=== PATIENT | female | born 1950 | race African-American/Black ===

== ENCOUNTER 2017-11-17 18:58 | Emergency (ER) | payer OTHER ==
[~2017-11-17] VITALS: Ht 157.5 cm; Wt 65.8 kg
[~2017-11-17 18:58] MED LIST: ACETAMINOPHEN325 M1 PO; APIDRA; ASPIRIN EC81 M1 PO; CARDIZEM CD180 MG PO; CARVEDILOL6.25 MG PO; CEFAZOLIN 1GM VI1 G1 IV; EFFIENT10 MG PO; GLUCOPHAGE500 MG PO; GLYCOLAX POWDER17 GM PO; LEVEMIR SUBQ; LISINOPRIL2.5 MG PO; LOPRESSOR 50 MG50 M1 PO; NITROGLYCERIN0.4 MG SL; PERCOCET 5-3251 EACH; PLAVIX 75 MG TA75 M1 PO; PRINIVIL10 MG PO; SIMVASTATIN40 MG PO; ZPAK PO
[2017-11-17 21:34] LABS: CALCIUM 9.5 mg/dL (8.5-10.1); CREATININE 1.8 mg/dL (0.6-1.0); POTASSIUM 4.4 mmol/L (3.5-5.1)
[2017-11-17] MEDS ORDERED: KEFLEX500 M2 PO (21:54)
[2017-11-17 22:10] LABS: URINE CLARITY TURBID; URINE COLOR YELLOW
[2017-11-17 22:11] LABS: URINE BILIRUBIN NEGATIVE (Negative); URINE BLOOD 2+ (Negative); URINE GLUCOSE-RANDOM* NEGATIVE (Negative); URINE KETONES NEGATIVE (Negative); URINE SPECIFIC GRAVITY 1.015 (1.005-1.035)
[2017-11-17 22:12] VITALS: BP 119/61
[2017-11-17 22:12] LABS: URINE LEUKOCYTES-REFLEX 2+ (Negative); URINE NITRITE-REFLEX NEGATIVE (Negative); URINE PROTEIN (DIPSTICK) 2+ (Negative); URINE UROBILINOGEN 0.2 E.U./dl (0.2-1.0)
[2017-11-17 22:14] LABS: BACTERIA-REFLEX >30 Many /HPF (None Seen); CASTS None Seen /LPF (None Seen); CRYSTALS None Seen /LPF (None Seen); SQUAMOUS 0-3 Few /LPF (0-3); URINE RBC 0-2 Rare /HPF (0-2); URINE WBC-REFLEX >25 Many /HPF (0-5)
== END 2017-11-17 22:19 | disposition home or self-care (01) ==
LOC: ER 18:58
PROVIDERS: Emergency Medicine
DX: T83.098A Other mechanical complication of other urinary catheter, initial encounter (principal); I10 Essential (primary) hypertension; E11.9 Type 2 diabetes mellitus without complications; E78.5 Hyperlipidemia, unspecified; G45.9 Transient cerebral ischemic attack, unspecified; N32.89 Other specified disorders of bladder; Z91.013 Allergy to seafood; Z88.2 Allergy status to sulfonamides; Z87.891 Personal history of nicotine dependence